=== PATIENT | male | born 1985 | race Caucasian/White ===

== ENCOUNTER 2020-10-26 18:18 | Emergency (ER) | payer OTHER, SELFPAY ==
[2020-10-26 20:37] VITALS: BP 134/78; PULSE 77; RESP 16; TEMP 37.1; O2SAT 98; BMI 35.2
--- NOTE | 2020-10-26 22:56 | ED_ITS ---
HPI - Skin/Abscess/Foreign Bdy General Chief complaint: Skin/Abscess/Foreign Body Stated complaint: finger infection Time Seen by Provider: 10/26/20 22:56 Source: patient Mode of arrival: ambulatory Limitations: no limitations History of Present Illness HPI narrative: Patient is a 35-year-old male no significant past medical history who has a sliver of wood stuck in his left thumb. He states it happened 2 weeks ago when he went to a hospital in [place] to try to have them remove it but they injected lidocaine in the area became distorted and they could not find it. So they put him on antibiotics and sent him home. He states he took a 2 weeks of antibiotics but this sliver has not come out yet. He states it is painful and still infected and he would like it removed. He does not remember when his last tetanus shot was, he states they did not give him a tetanus shot at the hospital in [place]. Related Data Previous Rx's Medication Instructions Recorded cephalexin 750 mg capsule (Keflex) 750 mg PO Q12H #20 cap 10/26/20 doxycycline hyclate 100 mg tablet 100 mg PO BID #14 tab 10/26/20 Allergies Allergy/AdvReac Type Severity Reaction Status Date / Time bee pollen [BEE STINGS] Allergy Unknown ANAPHYLAXIS Unverified 10/27/19 16:01 Review of Systems Review of Systems: Yes all other systems are reviewed and are negative [facility] Past Medical History Medical History No known health problems No known health problems Social History Social History Advance Directives: No Advance Directives Information Provided: No Physical Exam Vital Signs: Vital Signs: Last Vital Signs Temp 98.7 F 10/26/20 20:37 Pulse 77 10/26/20 20:37 Resp 16 10/26/20 20:37 BP 134/78 10/26/20 20:37 Pulse Ox 98 10/26/20 20:37 Body Mass Index 35.2 Const: General: cooperative, healthy appearing, comfortable, no acute distress and well developed Orientation/consciousness: patient oriented x3 Limitations: no limitations HENMT: Head: Yes normal to inspection Eyes: General: appearance normal, both eyes and all related structures Neck: Neck: Yes normal visual inspection and Yes full ROM Resp: Effort & Inspection: normal respiratory effort and able to speak in complete sentences Neuro: General: patient oriented x3 Extrem: Other: Left side/tip of thumb is erythematous, nonhealing wound with purulence coming from the wound, can see a small speck of black which is likely the sliver. NVI, full ROM of fingers, no streaking. Course Course Course Narrative: Soak finger in saline and Betadine, using an 11 blade was able to slice surface of the skin with a 2mm slice/pinpoint puncture and remove 1.5cm sliver of green wood. Will give patent tetanus shot an another round of Keflex and doxycycline. Discharge Plan Discharge Clinical Impression: Foreign body hand-infection Qualifiers: Encounter type: initial encounter Laterality: left Qualified Code(s): S60.552A - Superficial foreign body of left hand, initial encounter Patient Disposition: Home, Self-Care Additional Instructions: As discussed, we have given you a tetanus shot today, please keep the area clean and dry. I will send two prescriptions for antibiotics to her pharmacy, please take both in full. If your infection gets worse, please return to the emergency department. Prescriptions: New doxycycline hyclate 100 mg tablet 100 mg PO BID Qty: 14 RF: 0 cephalexin [Keflex] 750 mg capsule 750 mg PO Q12H Qty: 20 RF: 0
[2020-10-26] MEDS: Diphth,Pertus(ACell),Tet Adult 0.5 ML SYRINGE IM (23:24)
== END 2020-10-26 23:38 | disposition home or self-care (01) ==
PROVIDERS: Emergency Provider Internal Medicine; PCP Family Medicine
DX: S60.552A Superficial foreign body of left hand, initial encounter (principal); M79.642 Pain in left hand; W45.8XXA Other foreign body or object entering through skin, initial encounter; Y93.9 Activity, unspecified; Y92.9 Unspecified place or not applicable; Y99.9 Unspecified external cause status; Z79.899 Other long term (current) drug therapy
CPT/HCPCS: 10120; 90471; 90715; 99284

== ENCOUNTER 2022-08-12 19:00 | Emergency (ER) | payer OTHER, SELFPAY ==
[2022-08-12 19:05] VITALS: BP 185/105; PULSE 46; RESP 16; TEMP 36.4; O2SAT 100; BMI 32.4
--- NOTE | 2022-08-12 19:09 | ED.ABDPAIN ---
HPI - Abdominal Pain General Chief Complaint: General Medical Stated Complaint: RLQ and Flank Pain History of Present Illness HPI narrative: Patient is a 36-year-old male presented with having sudden onset of right flank pain. The pain is extreme. It goes from the right flank to the right lower quadrant. It is 10/10. It has been ongoing for approximately 5 hours. History of kidney stones similar pain in the past. No cough no congestion or respiratory symptoms. No diaphoresis. Patient from home. Related Data Previous Rx's Medication Instructions Recorded cephalexin 750 mg capsule (Keflex) 750 mg PO Q12H #20 caps 10/26/20 doxycycline hyclate 100 mg tablet 100 mg PO BID #14 tabs 10/26/20 ibuprofen 400 mg tablet 400 mg PO Q6H PRN pain #20 tabs 08/12/22 ondansetron 4 mg disintegrating 4 mg PO TID PRN nausea and 08/12/22 tablet vomiting 5 days #10 tabs oxycodone 5 mg tablet 5 mg PO Q8H PRN pain #7 tabs 08/12/22 tamsulosin 0.4 mg capsule (Flomax) 0.4 mg PO DAILY #7 caps 08/12/22 Allergies Allergy/AdvReac Type Severity Reaction Status Date / Time bee pollen [BEE STINGS] Allergy Unknown ANAPHYLAXIS Unverified 10/27/19 16:01 Review of Systems Review of Systems Positive right flank pain Yes all other systems are reviewed and are negative [facility] Past Medical History Attestation statement: The following information was validated with the patient. Medical History No known health problems No known health problems Social History Social History Alcohol intake: current Alcohol intake frequency: holidays/special occasions only Smoked in Last 30 Days: Yes Use of substances other than those prescribed or required for medical reasons: No Advance Directives: No Advance Directives Information Provided: No Physical Exam ED Vital Signs: Vital Signs - 24 hr 08/12/22 19:05 08/12/22 19:29 08/12/22 20:21 Temperature 97.5 F 98.0 F Pulse Rate 46 L 44 L 57 Respiratory Rate 16 16 18 Blood Pressure 185/105 H 148/74 H 126/60 Pulse Oximetry 100 100 99 Oxygen Delivery Method Room Air Room Air Room Air BMI result Body Mass Index 32.4 Appearance: Alert. Oriented X3. No acute distress. Eyes: Pupils equal, round and reactive to light. ENT: Pharynx normal. Neck: Normal inspection. Neck supple. No lymph nodes noted. No crepitus CVS: Normal heart rate and rhythm. Pulses normal. Normal S1 and S2 Respiratory: No respiratory distress. Breath sounds normal. No Wheezing. No rales Abdomen: Soft and nontender. No rigidity. No distention. good BS x4 Skin: Skin warm and dry. Normal skin color. Normal skin turgor. Extremities: No lower extremity edema. Neurovascular intact to all extremities. No Lacerations. No Rash Neuro: Oriented X 3. No motor deficit. No sensory deficit. Moving all extermities. No slurred speech Medical Decision Making Medical Decision Making MDM Narrative: Patient had flank pain very similar to previous bouts of kidney stones. It was sharp it was very sudden abrupt in onset it is in the right flank area. Patient denies any fever or chills. No systemic complaints. CT of the abdomen pelvis positive for a 2 mm x 4 mm kidney stone in the right ureter. Given pain medication. Seems the pain is under control. Patient's creatinine is normal. Is well-appearing. If urine is not infected will discharge patient home close follow-up on an outpatient basis. He has no fever chills here in the emergency department. Did not report any fever chills. In stable condition. Differential Diagnosis Differential Diagnoses: The differential diagnosis associated with the presentation includes Appendicitis, obstruction, abscess, kidney stone Admission/Observation Consideration of admission/observation: Escalation of care including admission/observation considered Pain is controlled normal kidney function no need to admit no fever Lab Data [facility] Lab Attestation statement: I reviewed the patient's lab results. 08/12/22 19:24 08/12/22 19:24 Labs: Lab Results 08/12/22 08/12/22 08/12/22 Range/Units 19:24 19:24 20:43 WBC 10.1 (4.8-10.8) X10*3/uL RBC 4.91 (4.60-5.80) X10*6/uL Hgb 14.8 (14.0-18.0) g/dl Hct 43.4 (42.0-52.0) % MCV 88.4 (80.0-98.0) fL MCH 30.1 (27.0-33.0) pg MCHC 34.1 (31.0-36.0) g/dl RDW 12.6 (11.0-16.0) % Plt Count 192 (160-400) X10*3/uL MPV 9.6 (9.4-12.4) fL Immature Gran % (Auto) 0.3 (0.0-0.4) % Neut % (Auto) 85.9 H (45-73) % Lymph % (Auto) 8.8 L (20-40) % [place] % (Auto) 4.6 (2-11) % Eos % (Auto) 0.1 (0-4) % Baso % (Auto) 0.3 (0-2) % Lymph # (Auto) 0.9 L (1.2-4.9) X10*3/uL [place] # (Auto) 0.5 (0.1-1.2) X10*3/uL Eos # (Auto) 0.0 (0.0-0.4) X10*3/uL Baso # (Auto) 0.0 (0.0-0.2) X10*3/uL Abs Immat Gran (auto) 0.03 (0.00-0.03) X10*3/uL Absolute Neuts (auto) 8.6 H (2.0-8.3) x10*3/uL Absolute Nucleated RBC 0.000 (0.0-0.012) X10*3/uL Nucleated RBC % (auto) 0.0 (0.0-0.2) /100WBC Sodium 140 (135-145) mmol/L Potassium 3.9 (3.3-5.1) mmol/L Chloride 110 H (96-108) mmol/L Carbon Dioxide 20 L (22-29) mmol/L Anion Gap 14 (12-20) BUN 19 H (9-16) mg/dL Creatinine 1.10 (0.5-1.4) mg/dL Estim Creat Clear Calc 111.3 Estimated GFR > 60 Random Glucose 128 H (60-115) mg/dL Calcium 9.4 (8.4-10.2) mg/dL Total Bilirubin 0.6 (0.0-1.0) mg/dL Direct Bilirubin 0.2 (0.0-0.5) mg/dL AST 19 (5-37) U/L ALT 14 (0-40) U/L Alkaline Phosphatase 47 (39-117) U/L Total Protein 6.7 (6.5-8.0) g/dL Albumin 4.2 (3.5-5.0) g/dL Lipase 7 L (8-78) U/L Urine Opiates Screen POSITIVE H (Not Detect) Urine Fentanyl Screen Not Detected (Not Detect) Ur Barbiturates Screen Not Detected (Not Detect) Ur Phencyclidine Scrn Not Detected (Not Detect) Ur Amphetamines Screen Not Detected (Not Detect) U Benzodiazepines Scrn Not Detected (Not Detect) Urine Cocaine Screen Not Detected (Not Detect) U Marijuana (THC) Screen Not Detected (Not Detect) Independent Interpretation I performed an independent interpretation of an: CT Scan Interpretation: No gross obstruction possible kidney stone noted Radiology Impression Discussion of test interpretation with radiology: I have reviewed the radiologist's reading. Chronic Conditions Kidney stones Medications Administered Discontinued Medications Generic Name Dose Route Start Last Admin Trade Name Freq PRN Reason Stop Dose Admin Hydromorphone HCl 0.5 mg 08/12/22 19:04 08/12/22 19:17 Hydromorphone Hcl 0.5 Mg/0.5 Ml Syringe IVPUSH 08/12/22 19:05 0.5 mg ONCE ONE Administration Protocol Sodium Chloride 1,000 mls @ 999 mls/hr 08/12/22 19:15 08/12/22 20:19 Ns IV 08/12/22 20:15 Infused .Q1H1M ANIKA Infusion Ketorolac Tromethamine 30 mg 08/12/22 19:04 08/12/22 19:17 Ketorolac Tromethamine 30 Mg/Ml Vial IVPUSH 08/12/22 19:05 30 mg ONCE ONE Administration Ondansetron HCl 4 mg 08/12/22 19:04 08/12/22 19:17 Ondansetron Hcl 4 Mg/2 Ml Vial IVPUSH 08/12/22 19:05 4 mg ONCE ONE Administration Discharge Plan Discharge Clinical Impression: Renal colic Patient Disposition: Home, Self-Care Instructions: Renal Colic (ED) Prescriptions: New tamsulosin [Flomax] 0.4 mg capsule 0.4 mg PO DAILY Qty: 7 0RF ibuprofen 400 mg tablet 400 mg PO Q6H PRN (Reason: pain) Qty: 20 0RF ondansetron 4 mg tablet,disintegrating 4 mg PO TID PRN (Reason: nausea and vomiting) 5 Days Qty: 10 0RF oxycodone 5 mg tablet 5 mg PO Q8H PRN (Reason: pain) Qty: 7 0RF Rx Instructions: Partial Fill upon patient request. No Action doxycycline hyclate 100 mg tablet 100 mg PO BID Qty: 14 0RF cephalexin [Keflex] 750 mg capsule 750 mg PO Q12H Qty: 20 0RF Referrals: Stephen Roth MD [Physician] - 08/14/22
[2022-08-12 19:29] VITALS: BP 148/74; PULSE 44; RESP 16; O2SAT 100
--- NOTE | 2022-08-12 19:35 | PC.NURSE ---
pt assessed, c/o severe RLQ since 1pm. medicated for pain and nausea, tolerated well
[2022-08-12 19:56] LABS: Alanine Aminotransferase 14 U/L (0-40); Albumin Level 4.2 g/dL (3.5-5.0); Alkaline Phosphatase 47 U/L (39-117); Anion Gap 14 (12-20); Aspartate Amino Transferase 19 U/L (5-37); Bilirubin Direct 0.2 mg/dL (0.0-0.5); Bilirubin Total 0.6 mg/dL (0.0-1.0); Blood Urea Nitrogen 19 mg/dL (9-16); Calcium 9.4 mg/dL (8.4-10.2); Carbon Dioxide 20 mmol/L (22-29); Chloride 110 mmol/L (96-108); Creatinine Clr Calc Pharmacy 111.3; Estimated Glomerular Filt Rate > 60; Glucose Random 128 mg/dL (60-115); Lipase 7 U/L (8-78); Potassium 3.9 mmol/L (3.3-5.1); Sodium 140 mmol/L (135-145); Total Protein 6.7 g/dL (6.5-8.0)
[2022-08-12 20:21] VITALS: BP 126/60; PULSE 57; RESP 18; TEMP 36.7; O2SAT 99
--- NOTE | 2022-08-12 20:22 | MHC.EDTECH ---
Tech assume care at [address] scan vitals taken pt is resting call reece is in reach.
[2022-08-12 21:19] VITALS: BP 129/64; PULSE 60; RESP 16; O2SAT 99
--- NOTE | 2022-08-12 21:21 | PC.NURSE ---
pt rassessed, reported pain increasing medicated with 2nd dose of Dilaudid ivp
--- NOTE | 2022-08-12 21:40 | ED.GENADULT ---
HPI - General Adult General Chief complaint: General Medical Stated complaint: RLQ and Flank Pain Related Data Previous Rx's Medication Instructions Recorded cephalexin 750 mg capsule (Keflex) 750 mg PO Q12H #20 caps 10/26/20 doxycycline hyclate 100 mg tablet 100 mg PO BID #14 tabs 10/26/20 ibuprofen 400 mg tablet 400 mg PO Q6H PRN pain #20 tabs 08/12/22 ondansetron 4 mg disintegrating 4 mg PO TID PRN nausea and 08/12/22 tablet vomiting 5 days #10 tabs oxycodone 5 mg tablet 5 mg PO Q8H PRN pain #7 tabs 08/12/22 tamsulosin 0.4 mg capsule (Flomax) 0.4 mg PO DAILY #7 caps 08/12/22 Allergies Allergy/AdvReac Type Severity Reaction Status Date / Time bee pollen [BEE STINGS] Allergy Unknown ANAPHYLAXIS Unverified 10/27/19 16:01 [facility] Past Medical History Medical History No known health problems No known health problems Social History Social History Alcohol intake: current Alcohol intake frequency: holidays/special occasions only Smoked in Last 30 Days: Yes Use of substances other than those prescribed or required for medical reasons: No Advance Directives: No Advance Directives Information Provided: No Physical Exam ED Vital Signs: Vital Signs - 24 hr 08/12/22 19:05 08/12/22 19:29 08/12/22 20:21 Temperature 97.5 F 98.0 F Pulse Rate 46 L 44 L 57 Respiratory Rate 16 16 18 Blood Pressure 185/105 H 148/74 H 126/60 Pulse Oximetry 100 100 99 Oxygen Delivery Method Room Air Room Air Room Air 08/12/22 21:19 Temperature Pulse Rate 60 Respiratory Rate 16 Blood Pressure 129/64 Pulse Oximetry 99 Oxygen Delivery Method Room Air BMI result Body Mass Index 32.4 Medications Administered Discontinued Medications Generic Name Dose Route Start Last Admin Trade Name Freq PRN Reason Stop Dose Admin Hydromorphone HCl 0.5 mg 08/12/22 19:04 08/12/22 19:17 Hydromorphone Hcl 0.5 Mg/0.5 Ml Syringe IVPUSH 08/12/22 19:05 0.5 mg ONCE ONE Administration Protocol Hydromorphone HCl 0.5 mg 08/12/22 21:13 08/12/22 21:18 Hydromorphone Hcl 0.5 Mg/0.5 Ml Syringe IVPUSH 08/12/22 21:14 0.5 mg ONCE ONE Administration Protocol Sodium Chloride 1,000 mls @ 999 mls/hr 08/12/22 19:15 08/12/22 20:19 Ns IV 08/12/22 20:15 Infused .Q1H1M ANIKA Infusion Ketorolac Tromethamine 30 mg 08/12/22 19:04 08/12/22 19:17 Ketorolac Tromethamine 30 Mg/Ml Vial IVPUSH 08/12/22 19:05 30 mg ONCE ONE Administration Ondansetron HCl 4 mg 08/12/22 19:08/12/22 19:17 Ondansetron Hcl 4 Mg/2 Ml Vial IVPUSH 08/12/22 19:05 4 mg ONCE ONE Administration Medical Decision Making Lab Data 08/12/22 19:24 08/12/22 19:24 Labs: Lab Results 08/12/22 08/12/22 08/12/22 Range/Units 19:24 19:24 20:43 WBC 10.1 (4.8-10.8) X10*3/uL RBC 4.91 (4.60-5.80) X10*6/uL Hgb 14.8 (14.0-18.0) g/dl Hct 43.4 (42.0-52.0) % MCV 88.4 (80.0-98.0) fL MCH 30.1 (27.0-33.0) pg MCHC 34.1 (31.0-36.0) g/dl RDW 12.6 (11.0-16.0) % Plt Count 192 (160-400) X10*3/uL MPV 9.6 (9.4-12.4) fL Immature Gran % (Auto) 0.3 (0.0-0.4) % Neut % (Auto) 85.9 H (45-73) % Lymph % (Auto) 8.8 L (20-40) % [place] % (Auto) 4.6 (2-11) % Eos % (Auto) 0.1 (0-4) % Baso % (Auto) 0.3 (0-2) % Lymph # (Auto) 0.9 L (1.2-4.9) X10*3/uL [place] # (Auto) 0.5 (0.1-1.2) X10*3/uL Eos # (Auto) 0.0 (0.0-0.4) X10*3/uL Baso # (Auto) 0.0 (0.0-0.2) X10*3/uL Abs Immat Gran (auto) 0.03 (0.00-0.03) X10*3/uL Absolute Neuts (auto) 8.6 H (2.0-8.3) x10*3/uL Absolute Nucleated RBC 0.000 (0.0-0.012) X10*3/uL Nucleated RBC % (auto) 0.0 (0.0-0.2) /100WBC Sodium 140 (135-145) mmol/L Potassium 3.9 (3.3-5.1) mmol/L Chloride 110 H (96-108) mmol/L Carbon Dioxide 20 L (22-29) mmol/L Anion Gap 14 (12-20) BUN 19 H (9-16) mg/dL Creatinine 1.10 (0.5-1.4) mg/dL Estim Creat Clear Calc 111.3 Estimated GFR > 60 Random Glucose 128 H (60-115) mg/dL Calcium 9.4 (8.4-10.2) mg/dL Total Bilirubin 0.6 (0.0-1.0) mg/dL Direct Bilirubin 0.2 (0.0-0.5) mg/dL AST 19 (5-37) U/L ALT 14 (0-40) U/L Alkaline Phosphatase 47 (39-117) U/L Total Protein 6.7 (6.5-8.0) g/dL Albumin 4.2 (3.5-5.0) g/dL Lipase 7 L (8-78) U/L Urine Color Yellow Urine Appearance Clear Urine pH 5.5 (5.0-9.0) Ur Specific [place] 1.020 (1.005-1.025) Urine Protein 30 (1+) H (Neg-Trace) mg/dL Urine Glucose (UA) Negative (Negative) mg/dL Urine Ketones Trace (Negative) mg/dL Urine Blood Large (3+) H (Negative) Urine Nitrite Negative (Negative) Ur Leukocyte Esterase Trace H (Negative) Urine RBC >20 H (0-2) /HPF Urine WBC 0-5 (0-5) /HPF Ur Squamous Epith Cells 0-2 (0-2) /HPF Urine Bacteria None Seen (None Seen) Hyaline Casts 0-2 (0-2) /LPF Urine Opiates Screen (Not Detect) Urine Fentanyl Screen (Not Detect) Ur Barbiturates Screen (Not Detect) Ur Phencyclidine Scrn (Not Detect) Ur Amphetamines Screen (Not Detect) U Benzodiazepines Scrn (Not Detect) Urine Cocaine Screen (Not Detect) U Marijuana (THC) Screen (Not Detect) 08/12/22 Range/Units 20:43 WBC (4.8-10.8) X10*3/uL RBC (4.60-5.80) X10*6/uL Hgb (14.0-18.0) g/dl Hct (42.0-52.0) % MCV (80.0-98.0) fL MCH (27.0-33.0) pg MCHC (31.0-36.0) g/dl RDW (11.0-16.0) % Plt Count (160-400) X10*3/uL MPV (9.4-12.4) fL Immature Gran % (Auto) (0.0-0.4) % Neut % (Auto) (45-73) % Lymph % (Auto) (20-40) % [place] % (Auto) (2-11) % Eos % (Auto) (0-4) % Baso % (Auto) (0-2) % Lymph # (Auto) (1.2-4.9) X10*3/uL [place] # (Auto) (0.1-1.2) X10*3/uL Eos # (Auto) (0.0-0.4) X10*3/uL Baso # (Auto) (0.0-0.2) X10*3/uL Abs Immat Gran (auto) (0.00-0.03) X10*3/uL Absolute Neuts (auto) (2.0-8.3) x10*3/uL Absolute Nucleated RBC (0.0-0.012) X10*3/uL Nucleated RBC % (auto) (0.0-0.2) /100WBC Sodium (135-145) mmol/L Potassium (3.3-5.1) mmol/L Chloride (96-108) mmol/L Carbon Dioxide (22-29) mmol/L Anion Gap (12-20) BUN (9-16) mg/dL Creatinine (0.5-1.4) mg/dL Estim Creat Clear Calc Estimated GFR Random Glucose (60-115) mg/dL Calcium (8.4-10.2) mg/dL Total Bilirubin (0.0-1.0) mg/dL Direct Bilirubin (0.0-0.5) mg/dL AST (5-37) U/L ALT (0-40) U/L Alkaline Phosphatase (39-117) U/L Total Protein (6.5-8.0) g/dL Albumin (3.5-5.0) g/dL Lipase (8-78) U/L Urine Color Urine Appearance Urine pH (5.0-9.0) Ur Specific [place] (1.005-1.025) Urine Protein (Neg-Trace) mg/dL Urine Glucose (UA) (Negative) mg/dL Urine Ketones (Negative) mg/dL Urine Blood (Negative) Urine Nitrite (Negative) Ur Leukocyte Esterase (Negative) Urine RBC (0-2) /HPF Urine WBC (0-5) /HPF Ur Squamous Epith Cells (0-2) /HPF Urine Bacteria (None Seen) Hyaline Casts (0-2) /LPF Urine Opiates Screen POSITIVE H (Not Detect) Urine Fentanyl Screen Not Detected (Not Detect) Ur Barbiturates Screen Not Detected (Not Detect) Ur Phencyclidine Scrn Not Detected (Not Detect) Ur Amphetamines Screen Not Detected (Not Detect) U Benzodiazepines Scrn Not Detected (Not Detect) Urine Cocaine Screen Not Detected (Not Detect) U Marijuana (THC) Screen Not Detected (Not Detect) Discharge Plan Discharge Clinical Impression: Renal colic Patient Disposition: Home, Self-Care Instructions: Renal Colic (ED) Prescriptions: New tamsulosin [Flomax] 0.4 mg capsule 0.4 mg PO DAILY Qty: 7 0RF ibuprofen 400 mg tablet 400 mg PO Q6H PRN (Reason: pain) Qty: 20 0RF ondansetron 4 mg tablet,disintegrating 4 mg PO TID PRN (Reason: nausea and vomiting) 5 Days Qty: 10 0RF oxycodone 5 mg tablet 5 mg PO Q8H PRN (Reason: pain) Qty: 7 0RF Rx Instructions: Partial Fill upon patient request. No Action doxycycline hyclate 100 mg tablet 100 mg PO BID Qty: 14 0RF cephalexin [Keflex] 750 mg capsule 750 mg PO Q12H Qty: 20 0RF Referrals: Stephen Roth MD [Physician] - 08/14/22
== END 2022-08-12 22:07 | disposition home or self-care (01) ==
PROVIDERS: Emergency Provider Emergency Medicine Emergency Medical Services
DX: N23 Unspecified renal colic (principal); Z87.442 Personal history of urinary calculi
CPT/HCPCS: 36415; 74176; 80048; 80076; 80307; 81001; 83690; 85025; 96361; 96374; 96375; 96376; 99284; 99285; J1170; J1885; J2405

== ENCOUNTER 2022-08-21 23:41 | Emergency (ER) | payer OTHER, SELFPAY ==
--- NOTE | ~2022-08-21 | CT_ITS ---
EXAMINATION: CT ABDOMEN AND PELVIS WITHOUT CONTRAST CLINICAL INFORMATION: Left flank pain, history of renal colic COMPARISON: [phone] TECHNIQUE: Multidetector volumetric imaging was performed from the superior aspect of the liver through the pubic symphysis. Sagittal and coronal reformatted images were obtained on the technologist's workstation. This CT examination was performed using dose optimization techniques as appropriate, variously including the following: *Automated exposure control *Adjustment of mA and/or kV according to patient size (this includes techniques or standardized protocols for targeted exams where dose is matched to indication/reason for exam; i.e. extremities or head) *Use of iterative reconstruction technique DLP: 677 mGy-cm FINDINGS: LUNG BASES: The visualized lung bases are unremarkable. LIVER, GALLBLADDER, AND BILIARY TREE: The liver is normal in size, shape, and attenuation. No focal hepatic lesion or biliary ductal dilatation is present. Gallbladder appears relatively contracted. PANCREAS: Unremarkable. SPLEEN: Tiny calcified granuloma noted. ADRENAL GLANDS: Unremarkable. KIDNEYS AND URETERS: There is a 6 mm calculus in the proximal left ureter with mild hydronephrosis. No significant right hydronephrosis. There are several scattered bilateral renal calculi measuring up to 5 mm. BLADDER: Unremarkable. GASTROINTESTINAL TRACT: No evidence of bowel obstruction or significant wall thickening. The appendix is unremarkable. No free fluid or free air is seen. ABDOMINAL WALL: No significant hernia is appreciated. LYMPH NODES: Normal. VASCULAR: Unremarkable. PELVIC VISCERA: Unremarkable. OSSEOUS STRUCTURES: Unremarkable. CT/CT abdomen pelvis wo IV con IMPRESSION: 1. Proximal left ureteral calculus measuring 6 mm with mild hydronephrosis. 2. Several scattered bilateral renal calculi.
[2022-08-21 23:45] VITALS: BP 176/87; PULSE 66; O2SAT 100
[2022-08-22 00:01] VITALS: BP 134/93; PULSE 58; RESP 12; TEMP 36.8; O2SAT 99; BMI 28.7
[2022-08-22 00:40] LABS: Appearance Urine Turbid; Color Urine BROWN; Glucose Urine UA Negative (Negative); Leukocyte Esterase Urine Negative (Negative); Nitrite Urine Negative (Negative); Specific Gravity - Urine 1.025 (1.005-1.025); UMIC TRIGGER UACC YES; Urine Blood Large (3+) (Negative); Urine Ketones Trace mg/dL (Negative); Urine Protein 30 (1+) mg/dL (Neg-Trace)
[2022-08-22 00:49] LABS: Bacteria Urine None Seen (None Seen); Hyaline Casts Urine 0-2 /LPF (0-2); RBC Urine >20 /HPF (0-2); Squamous Epithelial Cell Urine 0-2 /HPF (0-2); UACC Culture Trigger YES
[2022-08-22] MEDS: Ondansetron ODT 4 MG TAB.RAPDIS TRANSLINGU (02:16)
[2022-08-22] MEDS: Ketorolac Tromethamine 30 MG/ML VIAL 15 MG IVPUSH (02:16)
[2022-08-22] MEDS: 0.9 % Sodium Chloride 1,000 ML 999 ML IV (02:17)
--- NOTE | 2022-08-22 02:45 | ED.ABDPAIN ---
HPI - Abdominal Pain General Chief Complaint: Abdominal Pain Stated Complaint: Hematuria Time Seen by Provider: 08/22/22 00:18 Source: patient Mode of arrival: EMS History of Present Illness HPI narrative: Is a 36-year-old male with history of renal colic, arrives via ambulance for onset of acute sided left flank pain at approximately 21:00 this evening associated with some nausea but denies any vomiting, fever, chills and denies any dysuria. Patient states he has recently had and passed to stone and has never had to have lithotripsy. The time of my interview patient is feeling much improved. Related Data Previous Rx's Medication Instructions Recorded cephalexin 750 mg capsule (Keflex) 750 mg PO Q12H #20 caps 10/26/20 doxycycline hyclate 100 mg tablet 100 mg PO BID #14 tabs 10/26/20 ibuprofen 400 mg tablet 400 mg PO Q6H PRN pain #20 tabs 08/12/22 ondansetron 4 mg disintegrating 4 mg PO TID PRN nausea and 08/12/22 tablet vomiting 5 days #10 tabs oxycodone 5 mg tablet 5 mg PO Q8H PRN pain #7 tabs 08/12/22 tamsulosin 0.4 mg capsule (Flomax) 0.4 mg PO DAILY #7 caps 08/12/22 ketorolac 10 mg tablet 10 mg PO Q6H PRN pain 5 days #20 08/22/22 tabs prednisone 20 mg tablet 20 mg PO DAILY #3 tabs 08/22/22 Allergies Allergy/AdvReac Type Severity Reaction Status Date / Time bee pollen [BEE STINGS] Allergy Unknown ANAPHYLAXIS Unverified 10/27/19 16:01 Review of Systems Review of Systems Pertinent positives and negatives as stated in HPI PMFSH Past Medical History Source: nursing notes reviewed Medical History No known health problems No known health problems Social History Social History Alcohol intake: current Alcohol intake frequency: holidays/special occasions only Advance Directives: No Advance Directives Information Provided: No Physical Exam ED Vital Signs: Vital Signs - 24 hr 08/22/22 00:01 Temperature 98.2 F Pulse Rate 58 Respiratory Rate 12 Blood Pressure 134/93 H Pulse Oximetry 99 Oxygen Delivery Method Room Air BMI result Body Mass Index 28.7 VITAL SIGNS: Reviewed. GENERAL: Well developed, well nourished, in no acute distress. HEAD: Normocephalic/atraumatic EYES: PERRLA, EOMI EARS: Ext canals without abnormality LUNGS: Normal breath sounds. No adventitious sounds or accessory muscle use. SpO2<99> CARDIOVASCULAR: Regular rate and rhythm without noted murmurs ABDOMEN: Soft, non-tender, non-distended with bowel sounds. MUSCULOSKELETAL: No tenderness, deformities, or effusions noted on gross inspection. EXTREMITIES: No cyanosis, clubbing or edema. SKIN: Inspection of the skin reveals no rashes NEUROLOGIC: Alert and oriented x 4. Strength and sensation to light touch were grossly intact x 4. Medical Decision Making Medical Decision Making [facility] Narrative: 36-year-old male with history renal colic and now suspect the same although there is a possibility it is just a UTI and doubt pyelonephritis. Patient is afebrile and otherwise comfortable the time of my examination. Reviewed all investigations and urine is positive for hematuria but negative for evidence of infection, patient was given 1 L of fluids, Zofran, Toradol and is currently at a 1/10 for pain. I identify an approximate 3-4 mm stone in the left mid ureter. Patient is stable for discharge to home and states that he has plenty of Zofran. Differential Diagnosis Differential Diagnoses: The differential diagnosis associated with the presentation includes Please see the discussion above Lab Data [facility] Lab Attestation statement: I reviewed the patient's lab results. Please see the discussion above Labs: Lab Results 08/22/22 Range/Units 00:20 Urine Color BROWN Urine Appearance Turbid Urine pH 6.0 (5.0-9.0) Ur Specific [place] 1.025 (1.005-1.025) Urine Protein 30 (1+) H (Neg-Trace) mg/dL Urine Glucose (UA) Negative (Negative) mg/dL Urine Ketones Trace (Negative) mg/dL Urine Blood Large (3+) H (Negative) Urine Nitrite Negative (Negative) Ur Leukocyte Esterase Negative (Negative) Urine RBC >20 H (0-2) /HPF Urine WBC 6-10 H (0-5) /HPF Ur Squamous Epith Cells 0-2 (0-2) /HPF Urine Bacteria None Seen (None Seen) Hyaline Casts 0-2 (0-2) /LPF Radiology Impression Radiologist Impression: There is stone in the left ureter, otherwise my interpretation is in agreement with radiology's impression. Medications Administered Generic Name Dose Route Start Last Admin Trade Name Freq PRN Reason Stop Dose Admin Sodium Chloride 1,000 mls @ 999 mls/hr 08/22/22 02:15 08/22/22 02:17 Ns IV 08/22/22 03:15 999 mls/hr .Q1H1M ANIKA Administration Discontinued Medications Generic Name Dose Route Start Last Admin Trade Name Freq PRN Reason Stop Dose Admin Ketorolac Tromethamine 15 mg 08/22/22 02:08 08/22/22 02:16 Ketorolac Tromethamine 30 Mg/Ml Vial IVPUSH 08/22/22 02:09 15 mg ONCE ONE Administration Ondansetron HCl 4 mg 08/22/22 02:08 08/22/22 02:16 Ondansetron Odt 4 Mg Tab.Rapdis TRANSLINGU 08/22/22 02:09 4 mg ONCE ONE Administration Discharge Plan Discharge Clinical Impression: Ureterolithiasis, Renal colic Patient Disposition: Home, Self-Care Instructions: Renal Colic (ED), Low Oxalate Diet (ED), Ureteral Stones (ED) Additional Instructions: 1. you have been given medication to help control your pain. 2. Increased amount of water that you drink, use the Flomax each night before bed. 3. Please follow-up with Urology on Thursday morning. Return to the ER for any worsening symptoms Prescriptions: New ketorolac 10 mg tablet 10 mg PO Q6H PRN (Reason: pain) 5 Days Qty: 20 0RF Rx Instructions: Patient received Toradol in the emergency room prednisone 20 mg tablet 20 mg PO DAILY Qty: 3 0RF No Action doxycycline hyclate 100 mg tablet 100 mg PO BID Qty: 14 0RF cephalexin [Keflex] 750 mg capsule 750 mg PO Q12H Qty: 20 0RF tamsulosin [Flomax] 0.4 mg capsule 0.4 mg PO DAILY Qty: 7 0RF ibuprofen 400 mg tablet 400 mg PO Q6H PRN (Reason: pain) Qty: 20 0RF ondansetron 4 mg tablet,disintegrating 4 mg PO TID PRN (Reason: nausea and vomiting) 5 Days Qty: 10 0RF oxycodone 5 mg tablet 5 mg PO Q8H PRN (Reason: pain) Qty: 7 0RF Rx Instructions: Partial Fill upon patient request. Referrals: Mitra Sena MD [Physician] - Alfonso Ziegler MD [Primary Care Provider] -
[2022-08-22 03:43] VITALS: BP 133/88; PULSE 66; RESP 16; TEMP 36.7; O2SAT 100
[2022-08-22] MEDS: Ketorolac Tromethamine 15 MG/ML VIAL IM (03:46)
== END 2022-08-22 03:58 | disposition home or self-care (01) ==
PROVIDERS: Emergency Provider Student in an Organized Health Care Education/Training Program; PCP Family Medicine
DX: N20.1 Calculus of ureter (principal); N23 Unspecified renal colic; R11.0 Nausea; R31.9 Hematuria, unspecified
CPT/HCPCS: 74176; 81001; 87086; 96361; 96372; 96374; 99284; J1885

== ENCOUNTER 2022-08-24 18:50 | Inpatient (IN) | payer OTHER, SELFPAY ==
--- NOTE | ~2022-08-24 | FL_ITS ---
EXAMINATION: XR FLUOROSCOPY WITH IMAGES CLINICAL INFORMATION: Left-sided stone COMPARISON: Previous CT of the abdomen and pelvis the 23 TECHNIQUE: Fluoroscopy Supervised By: Dr. Stephen Roth. Fluoroscopy Time: 9.9 seconds. Cumulative Dose: 3.8 mGy. DAP: Gycm2. Images: 1. FINDINGS: Single image demonstrates a wire in the left distal ureter. There may be a left distal ureteral stone projecting over the left lower sacrum. FL/FL guidance in OR IMPRESSION: Fluoroscopy guidance for left retrograde exam.
--- NOTE | ~2022-08-24 | CT_ITS ---
EXAMINATION: CT ABDOMEN AND PELVIS WITHOUT CONTRAST CLINICAL INFORMATION: left flank pain hx of kidney stones. COMPARISON: 08/22/2022. TECHNIQUE: Multidetector volumetric imaging was performed from the superior aspect of the liver through the pubic symphysis without contrast per renal stone protocol. Sagittal and coronal reformatted images were obtained on the technologist workstation. This CT examination was performed using dose optimization techniques as appropriate, variously including the following: *Automated exposure control *Adjustment of mA and/or kV according to patient size (this includes techniques or standardized protocols for targeted exams where dose is matched to indication/reason for exam; i.e. extremities or head) *Use of iterative reconstruction technique DLP: 561 mGy-cm. FINDINGS: LUNG BASES: The visualized lung bases are unremarkable. LIVER, GALLBLADDER, BILIARY TREE: The non-contrast liver is normal in size, shape, and attenuation. No focal hepatic lesion or biliary ductal dilatation is present. The gallbladder is unremarkable with no evidence of radiopaque gallstones, gallbladder wall thickening, or obvious pericholecystic inflammatory changes. PANCREAS: Unremarkable. SPLEEN: Few tiny punctate calcific granulomas within the spleen incidentally noted. ADRENAL GLANDS: Unremarkable. KIDNEYS AND URETERS: There is left-sided hydronephrosis and hydroureter with mild perinephric and periureteric stranding. The left ureter is dilated throughout its course up to a 6 mm calcification in the mid left ureter at the level of L4/L5. Multiple tiny punctate nonobstructing intrarenal calculi are seen bilaterally as well. BLADDER: Decompressed and unremarkable GASTROINTESTINAL TRACT: Scattered colonic diverticulosis but no colonic wall thickening or pericolonic inflammatory change to suggest diverticulitis. Visualized small bowel unremarkable ABDOMINAL WALL: Tiny umbilical fat-containing hernia LYMPHOVASCULAR STRUCTURES: No lymphadenopathy. The aorta is unremarkable.. PELVIC VISCERA: Unremarkable. OSSEUS STRUCTURES: Unremarkable. CT/CT abdomen pelvis wo IV con IMPRESSION: Left-sided hydronephrosis and hydroureter extending up to a 6 mm calcification in the mid left ureter at the level of L4/L5. Additional tiny punctate nonobstructing intrarenal calculi seen bilaterally.
[2022-08-24 18:56] VITALS: BP 146/100; PULSE 102; O2SAT 98
[2022-08-24 18:59] VITALS: BP 120/75; PULSE 84; RESP 18; O2SAT 96; BMI 30.1
[2022-08-24 19:01] VITALS: PULSE 86
[2022-08-24] MEDS: 0.9 % Sodium Chloride 1,000 ML 999 ML IVCONT ×3 (19:33→21:25)
[2022-08-24 19:37] LABS: MANUAL DIFF FLAG NO
[2022-08-24] MEDS: ondansetron HCL 4 MG/2 ML VIAL IVPUSH (19:41)
[2022-08-24] MEDS: HYDROmorphone HCl 0.5 MG/0.5 ML SYRINGE IVPUSH (19:41)
[2022-08-24 19:42] LABS: Basophils Percent Auto 0.3 % (0-2); Eosinophils Absolute Auto 0.1 X10*3/uL (0.0-0.4); Eosinophils Percent Auto 0.9 % (0-4); Hemoglobin 13.7 g/dl (14.0-18.0); Imm Gran Abs Auto 0.03 X10*3/uL (0.00-0.03); Imm Gran Pct Auto 0.3 % (0.0-0.4); Lymphocytes Percent Auto 10.9 % (20-40); Mean Corpuscular HGB Conc 34.3 g/dl (31.0-36.0); Mean Corpuscular Hemoglobin 30.3 pg (27.0-33.0); Mean Corpuscular Volume 88.5 fL (80.0-98.0); Mean Platelet Volume 9.1 fL (9.4-12.4); Monocytes Absolute Auto 0.8 X10*3/uL (0.1-1.2); Monocytes Percent Auto 8.9 % (2-11); Neutrophils Absolute Auto 7.4 x10*3/uL (2.0-8.3); Neutrophils Percent Auto 78.7 % (45-73); Platelet Count 181 X10*3/uL (160-400); Red Blood Count 4.52 X10*6/uL (4.60-5.80); Red Cell Distribution Width 12.3 % (11.0-16.0); White Blood Count 9.3 X10*3/uL (4.8-10.8)
--- NOTE | 2022-08-24 19:45 | PC.NURSE ---
pt aox4, reporting severe pain left sided flank pain r/o kidney stones. medicated per apr. will ctm
[2022-08-24 19:58] LABS: Alanine Aminotransferase 14 U/L (0-40); Albumin Level 3.8 g/dL (3.5-5.0); Alkaline Phosphatase 54 U/L (39-117); Anion Gap 12 (12-20); Aspartate Amino Transferase 17 U/L (5-37); Bilirubin Total 0.7 mg/dL (0.0-1.0); Blood Urea Nitrogen 24 mg/dL (9-16); Calcium 9.6 mg/dL (8.4-10.2); Carbon Dioxide 22 mmol/L (22-29); Chloride 111 mmol/L (96-108); Creatinine Clr Calc Pharmacy 71.6; Estimated Glomerular Filt Rate 47; Glucose Random 108 mg/dL (60-115); Lipase 8 U/L (8-78); Magnesium 2.1 mg/dL (1.6-2.6); Potassium 3.9 mmol/L (3.3-5.1); Sodium 141 mmol/L (135-145); Total Protein 6.5 g/dL (6.5-8.0)
[2022-08-24 20:33] VITALS: BP 121/80; PULSE 92; RESP 18; TEMP 37.1; O2SAT 97
[2022-08-24 20:51] LABS: Appearance Urine Clear; Color Urine Yellow; Glucose Urine UA Negative (Negative); Leukocyte Esterase Urine Negative (Negative); Nitrite Urine Negative (Negative); UMIC TRIGGER UACC YES; Urine Blood Trace (Negative); Urine Ketones Negative (Negative); Urine Protein Negative (Neg-Trace)
--- NOTE | 2022-08-24 20:59 | PC.NURSE ---
pt reports feeling much better, pain down to a 3, next liter of fluids infusing
--- NOTE | 2022-08-24 21:21 | ED.MALEGU ---
HPI - Male Genitourinary General Chief complaint: Urogenital-Male Stated complaint: L FLANK PAIN ABD PAIN Time Seen by Provider: 08/24/22 21:01 Source: patient Mode of arrival: EMS Limitations: no limitations History of Present Illness HPI Narrative: Patient comes to the emergency room complaining of left-sided flank pain. Patient is known to have kidney stones. This is the 3rd visit in 1 month for the same complaint. Patient states that since his early 20s he has been passing kidney stones. He has never required surgery. However, this time the pain is consistent in lasting longer than usual. Patient complained of nausea, no vomiting. Related Data Previous Rx's Medication Instructions Recorded cephalexin 750 mg capsule (Keflex) 750 mg PO Q12H #20 caps 10/26/20 doxycycline hyclate 100 mg tablet 100 mg PO BID #14 tabs 10/26/20 ibuprofen 400 mg tablet 400 mg PO Q6H PRN pain #20 tabs 08/12/22 ondansetron 4 mg disintegrating 4 mg PO TID PRN nausea and 08/12/22 tablet vomiting 5 days #10 tabs oxycodone 5 mg tablet 5 mg PO Q8H PRN pain #7 tabs 08/12/22 tamsulosin 0.4 mg capsule (Flomax) 0.4 mg PO DAILY #7 caps 08/12/22 ketorolac 10 mg tablet 10 mg PO Q6H PRN pain 5 days #20 08/22/22 tabs prednisone 20 mg tablet 20 mg PO DAILY #3 tabs 08/22/22 Allergies Allergy/AdvReac Type Severity Reaction Status Date / Time bee pollen [BEE STINGS] Allergy Unknown ANAPHYLAXIS Verified 08/22/22 03:45 Review of Systems Review of Systems: Constitutional : No Weight loss, No Fever, No Chills, No Night Sweats, No Fatigue, No Malaise ENT/Mouth : No Hearing loss, No Ear Pain, No Nasal Congestion, No Sinus Pain, No Hoarseness, No sore throat, No Rhinorrhea, No Swallowing Difficulty Eyes: No Eye Pain, No Swelling, No Redness, No Foreign Body, No Discharge, No Vision Changes Cardiovascular : No Chest Pain, No SOB, No Dyspnea on Exertion, No Orthopnea, No Edema, No Palpitations Respiratory : No Cough, No Sputum, No Wheezing, No Smoke Exposure, No Dyspnea Gastrointestinal : No Nausea, No Vomiting, No Diarrhea, No Constipation, No abdominal Pain, No Hematochezia, No Melena Genitourinary : no irregular bleeding, No Dysuria, No Urinary Frequency, No Hematuria, No Urinary Incontinence, No Urgency, complaining of left-sided Flank Pain, No Urinary Flow Changes, No Hesitancy Musculoskeletal : No joint pain, No Myalgias, No Joint Swelling Skin : No Skin Lesions, No rash Neuro : No Weakness, No Numbness, No Paresthesias, No Loss of Consciousness, No Dizziness, No Headache Psych : No Anxiety/Panic, No Depression, No SI/HI/AH/VH, No Social Issues, Heme/Lymph: No Bruising, No Bleeding,No Lymphadenopathy Endocrine : No Polyuria, No Polydipsia, No Temperature Intolerance [facility] Past Medical History Medical History (Updated 08/24/22 @ 22:40 by Sylvie Palmer MD) Kidney stones Social History Social History Alcohol intake: current Alcohol intake frequency: holidays/special occasions only Smoked in Last 30 Days: Yes Use of substances other than those prescribed or required for medical reasons: No Advance Directives: No Advance Directives Information Provided: No Physical Exam Vital Signs: Vital Signs: Last Vital Signs Temp 98.8 F 08/24/22 20:33 Pulse 92 08/24/22 20:33 Resp 18 08/24/22 20:33 BP 121/80 08/24/22 20:33 Pulse Ox 97 08/24/22 20:33 O2 Del Method Room Air 08/24/22 20:33 BMI result Body Mass Index 30.1 Const: Other: Appearance: Alert. Oriented X3. No acute distress. Eyes: Pupils equal, round and reactive to light. ENT: Pharynx normal. Neck: Normal inspection. Neck supple. No lymph nodes noted. No crepitus CVS: Normal heart rate and rhythm. Pulses normal. Normal S1 and S2 Respiratory: No respiratory distress. Breath sounds normal. No Wheezing. No rales Abdomen: Soft and nontender. No rigidity. No distention. Skin: Skin warm and dry. Normal skin color. Normal skin turgor. Extremities: No lower extremity edema. No Lacerations. No Rash Neuro: Oriented X 3. No motor deficit. No sensory deficit. Moving all extremities. No slurred speech. CN 2 through 12 grossly intact Psych: calm, cooperative, normal affect Course Course Course Narrative: - Medications Administered Discontinued Medications Generic Name Dose Route Start Last Admin Trade Name Charly PRN Reason Stop Dose Admin Hydromorphone HCl 0.5 mg 08/24/22 19:37 08/24/22 19:41 Hydromorphone Hcl 0.5 Mg/0.5 Ml Syringe IVPUSH 08/24/22 19:38 0.5 mg ONCE ONE Administration Protocol Sodium Chloride 1,000 mls @ 999 mls/hr 08/24/22 19:15 08/24/22 20:30 Ns IVCONT 08/24/22 20:15 Infused .Q1H1M ANIKA Infusion Sodium Chloride 1,000 mls @ 999 mls/hr 08/24/22 20:45 08/24/22 22:14 Ns IVCONT 08/24/22 21:45 Infused .Q1H1M ANIKA Infusion Sodium Chloride 1,000 mls @ 999 mls/hr 08/24/22 21:10 08/24/22 22:14 Ns IVCONT 08/24/22 22:10 Infused .Q1H1M ONE Infusion Ondansetron HCl 4 mg 08/24/22 19:06 08/24/22 19:41 Ondansetron Hcl 4 Mg/2 Ml Vial IVPUSH 08/24/22 19:07 4 mg ONCE ONE Administration Medical Decision Making Medical Decision Making [facility] Narrative: -this is patient's 3rd visit in 1 month for renal colic. Admission is being considered. -my interpretation of labs, patient's creatinine is 1.65. Patient receiving IV fluids. Likely cause is the stone obstruction in the left ureter causing hydronephrosis and hydroureter -patient received Dilaudid. The pain initially decreased. However, patient states that the pain is starting to return. At home, patient has been tried ketorolac that helped, but the pain is recurrent -my interpretation of CT scan of abdomen pelvis: Hydronephrosis present on the left, there is approximately a 5 mm stone in the ureter on the left -I discussed the patient with Dr. Roth, patient admitted, to be NPO after midnight -patient agreeable with plan Differential Diagnosis Differential Diagnoses: The differential diagnosis associated with the presentation includes (Renal colic, ureterolithiasis, UTI, pyelonephritis) Admission/Observation Consideration of admission/observation: Escalation of care including admission/observation considered Consult Healthcare Provider Management of the patient was discussed with: Project Engineer Lab Data MDM Lab Attestation statement: I reviewed the patient's lab results. 08/24/22 19:32 08/24/22 19:32 Labs: Lab Results 08/24/22 08/24/22 08/24/22 Range/Units 19:32 19:32 19:32 WBC 9.3 (4.8-10.8) X10*3/uL RBC 4.52 L (4.60-5.80) X10*6/uL Hgb 13.7 L (14.0-18.0) g/dl Hct 40.0 L (42.0-52.0) % MCV 88.5 (80.0-98.0) fL MCH 30.3 (27.0-33.0) pg MCHC 34.3 (31.0-36.0) g/dl RDW 12.3 (11.0-16.0) % Plt Count 181 (160-400) X10*3/uL MPV 9.1 L (9.4-12.4) fL Immature Gran % (Auto) 0.3 (0.0-0.4) % Neut % (Auto) 78.7 H (45-73) % Lymph % (Auto) 10.9 L (20-40) % [facility] % (Auto) 8.9 (2-11) % Eos % (Auto) 0.9 (0-4) % Baso % (Auto) 0.3 (0-2) % Lymph # (Auto) 1.0 L (1.2-4.9) X10*3/uL [facility] # (Auto) 0.8 (0.1-1.2) X10*3/uL Eos # (Auto) 0.1 (0.0-0.4) X10*3/uL Baso # (Auto) 0.0 (0.0-0.2) X10*3/uL Abs Immat Gran (auto) 0.03 (0.00-0.03) X10*3/uL Absolute Neuts (auto) 7.4 (2.0-8.3) x10*3/uL Absolute Nucleated RBC 0.000 (0.0-0.012) X10*3/uL Nucleated RBC % (auto) 0.0 (0.0-0.2) /100WBC PT 12.0 (10.0-13.1) SEC INR 1.0 (0.9-1.1) Sodium 141 (135-145) mmol/L Potassium 3.9 (3.3-5.1) mmol/L Chloride 111 H (96-108) mmol/L Carbon Dioxide 22 (22-29) mmol/L Anion Gap 12 (12-20) BUN 24 H (9-16) mg/dL Creatinine 1.65 H (0.5-1.4) mg/dL Estim Creat Clear Calc 71.6 Estimated GFR 47 Random Glucose 108 (60-115) mg/dL Calcium 9.6 (8.4-10.2) mg/dL Magnesium 2.1 (1.6-2.6) mg/dL Total Bilirubin 0.7 (0.0-1.0) mg/dL AST 17 (5-37) U/L ALT 14 (0-40) U/L Alkaline Phosphatase 54 (39-117) U/L Total Protein 6.5 (6.5-8.0) g/dL Albumin 3.8 (3.5-5.0) g/dL Lipase 8 (8-78) U/L Urine Color Urine Appearance Urine pH (5.0-9.0) Ur Specific [place] (1.005-1.025) Urine Protein (Neg-Trace) mg/dL Urine Glucose (UA) (Negative) mg/dL Urine Ketones (Negative) mg/dL Urine Blood (Negative) Urine Nitrite (Negative) Ur Leukocyte Esterase (Negative) Urine RBC (0-2) /HPF Urine WBC (0-5) /HPF Ur Squamous Epith Cells (0-2) /HPF Urine Bacteria (None Seen) Hyaline Casts (0-2) /LPF 08/24/22 Range/Units 20:44 WBC (4.8-10.8) X10*3/uL RBC (4.60-5.80) X10*6/uL Hgb (14.0-18.0) g/dl Hct (42.0-52.0) % MCV (80.0-98.0) fL MCH (27.0-33.0) pg MCHC (31.0-36.0) g/dl RDW (11.0-16.0) % Plt Count (160-400) X10*3/uL MPV (9.4-12.4) fL Immature Gran % (Auto) (0.0-0.4) % Neut % (Auto) (45-73) % Lymph % (Auto) (20-40) % [facility] % (Auto) (2-11) % Eos % (Auto) (0-4) % Baso % (Auto) (0-2) % Lymph # (Auto) (1.2-4.9) X10*3/uL [facility] # (Auto) (0.1-1.2) X10*3/uL Eos # (Auto) (0.0-0.4) X10*3/uL Baso # (Auto) (0.0-0.2) X10*3/uL Abs Immat Gran (auto) (0.00-0.03) X10*3/uL Absolute Neuts (auto) (2.0-8.3) x10*3/uL Absolute Nucleated RBC (0.0-0.012) X10*3/uL Nucleated RBC % (auto) (0.0-0.2) /100WBC PT (10.0-13.1) SEC INR (0.9-1.1) Sodium (135-145) mmol/L Potassium (3.3-5.1) mmol/L Chloride (96-108) mmol/L Carbon Dioxide (22-29) mmol/L Anion Gap (12-20) BUN (9-16) mg/dL Creatinine (0.5-1.4) mg/dL Estim Creat Clear Calc Estimated GFR Random Glucose (60-115) mg/dL Calcium (8.4-10.2) mg/dL Magnesium (1.6-2.6) mg/dL Total Bilirubin (0.0-1.0) mg/dL AST (5-37) U/L ALT (0-40) U/L Alkaline Phosphatase (39-117) U/L Total Protein (6.5-8.0) g/dL Albumin (3.5-5.0) g/dL Lipase (8-78) U/L Urine Color Yellow Urine Appearance Clear Urine pH 6.0 (5.0-9.0) Ur Specific [place] 1.010 (1.005-1.025) Urine Protein Negative (Neg-Trace) mg/dL Urine Glucose (UA) Negative (Negative) mg/dL Urine Ketones Negative (Negative) mg/dL Urine Blood Trace H (Negative) Urine Nitrite Negative (Negative) Ur Leukocyte Esterase Negative (Negative) Urine RBC 0-2 (0-2) /HPF Urine WBC 0-5 (0-5) /HPF Ur Squamous Epith Cells 0-2 (0-2) /HPF Urine Bacteria None Seen (None Seen) Hyaline Casts 0-2 (0-2) /LPF Independent Interpretation I performed an independent interpretation of an: CT Scan Radiology Impression Discussion of test interpretation with radiology: I have reviewed the radiologist's reading. Radiologist Impression: FINDINGS: LUNG BASES: The visualized lung bases are unremarkable. LIVER, GALLBLADDER, BILIARY TREE: The non-contrast liver is normal in size, shape, and attenuation. No focal hepatic lesion or biliary ductal dilatation is present.? The gallbladder is unremarkable with no evidence of radiopaque gallstones, gallbladder wall thickening, or obvious pericholecystic inflammatory changes. PANCREAS: Unremarkable. SPLEEN: Few tiny punctate calcific granulomas within the spleen incidentally noted. ADRENAL GLANDS: Unremarkable. KIDNEYS AND URETERS: There is left-sided hydronephrosis and hydroureter with mild perinephric and periureteric stranding. The left ureter is dilated throughout its course up to a 6 mm calcification in the mid left ureter at the level of L4/L5. Multiple tiny punctate nonobstructing intrarenal calculi are seen bilaterally as well. BLADDER: Decompressed and unremarkable GASTROINTESTINAL TRACT: Scattered colonic diverticulosis but no colonic wall thickening or pericolonic inflammatory change to suggest diverticulitis. Visualized small bowel unremarkable ABDOMINAL WALL: Tiny umbilical fat-containing hernia LYMPHOVASCULAR STRUCTURES: No lymphadenopathy.? The aorta is unremarkable.. PELVIC VISCERA: Unremarkable. OSSEUS STRUCTURES: Unremarkable. CT/CT abdomen pelvis wo IV con IMPRESSION: Left-sided hydronephrosis and hydroureter extending up to a 6 mm calcification in the mid left ureter at the level of L4/L5. Additional tiny punctate nonobstructing intrarenal calculi seen bilaterally. ? Critical Care Time Critical Care Time Critical Care Time: Yes Total Critical Care Time: 60 Attestation: I have personally provided critical care time. Time includes review of lab data, radiology results, discussion with consultants, and monitoring for potential decompensation. Intervention performed as documented. Discharge Plan Discharge Clinical Impression: Kidney stones, Acute kidney injury Patient Disposition: Admitted As Inpatient Prescriptions: No Action doxycycline hyclate 100 mg tablet 100 mg PO BID Qty: 14 0RF cephalexin [Keflex] 750 mg capsule 750 mg PO Q12H Qty: 20 0RF tamsulosin [Flomax] 0.4 mg capsule 0.4 mg PO DAILY Qty: 7 0RF ibuprofen 400 mg tablet 400 mg PO Q6H PRN (Reason: pain) Qty: 20 0RF ondansetron 4 mg tablet,disintegrating 4 mg PO TID PRN (Reason: nausea and vomiting) 5 Days Qty: 10 0RF oxycodone 5 mg tablet 5 mg PO Q8H PRN (Reason: pain) Qty: 7 0RF Rx Instructions: Partial Fill upon patient request. ketorolac 10 mg tablet 10 mg PO Q6H PRN (Reason: pain) 5 Days Qty: 20 0RF Rx Instructions: Patient received Toradol in the emergency room prednisone 20 mg tablet 20 mg PO DAILY Qty: 3 0RF
[2022-08-24 21:36] LABS: Bacteria Urine None Seen (None Seen); Hyaline Casts Urine 0-2 /LPF (0-2); RBC Urine 0-2 /HPF (0-2); Squamous Epithelial Cell Urine 0-2 /HPF (0-2); WBC Urine 0-5 /HPF (0-5)
--- NOTE | 2022-08-24 22:15 | PC.NURSE ---
iv fluids finished, pt will be NPO after midnight, got turkey sandwich and tea for now
--- NOTE | 2022-08-24 23:08 | P.HPGS_ITS ---
History of Present Illness History of Present Illness Date of Service: 08/24/22 Chief complaint: L FLANK PAIN ABD PAIN Narrative: Delmer Crook JR is a 36 year old male Reports 3rd visit to emergency room in past month for left-sided flank pain Known history of kidney stones Has not previously required intervention This has more pain to 8/10 and has not resolved Creatinine shows elevation to 1.6, calcium 9.6 Imaging - 6 mm mid left ureteric stone with proximal hydroureteronephrosis and punctate renal stones No significant prior medical history Given presentation recommended admission with intervention Cystoscopy, retrograde, ureteroscopy with laser lithotripsy and stent placement Review of Systems Constitutional: Constitutional: Reports as per HPI and Reports no additional constitutional complaints Cardiovascular: Cardiovascular: Reports as per HPI and Reports no additional cardiovascular complaints Respiratory: Respiratory: Reports as per HPI and Reports no additional respiratory complaints Gastrointestinal: Gastrointestinal: Reports as per HPI and Reports no additional gastrointestinal complaints Genitourinary: Genitourinary: Reports as per HPI Musculoskeletal: Musculoskeletal: Reports no additional musculoskeletal complaints and Reports as per HPI Neurologic: Reports system reviewed and no additional complaints, except as documented and Reports as per HPI COUNT INCLUDES [facility] Past Medical History Medical History (Updated 08/24/22 @ 22:40 by Sylvie Palmer MD) Kidney stones Social History Social History Alcohol intake: current Alcohol intake frequency: holidays/special occasions only Smoked in Last 30 Days: Yes Use of substances other than those prescribed or required for medical reasons: No Advance Directives: No Advance Directives Information Provided: No Meds Allergies Allergy/AdvReac Type Severity Reaction Status Date / Time bee pollen [BEE STINGS] Allergy Unknown ANAPHYLAXIS Verified 08/22/22 03:45 Physical Exam Vital Signs: Vital Signs: Last Vital Signs Temp 98.8 F 08/24/22 20:33 Pulse 92 08/24/22 20:33 Resp 18 08/24/22 20:33 BP 121/80 08/24/22 20:33 Pulse Ox 97 08/24/22 20:33 O2 Del Method Room Air 08/24/22 20:33 BMI result Body Mass Index 30.1 Const: General: cooperative, healthy appearing, comfortable and no acute distress Orientation/consciousness: patient oriented x3 HEENT: Face and sinus: Yes normal facial exam Mouth: moist mucous membranes Neck: Neck: Yes normal visual inspection, Yes full ROM and Yes trachea midline Chest: Chest palpation & inspection: normal inspection of the chest Resp: Effort & Inspection: normal respiratory effort, able to speak in complete sentences and no respiratory distress GI: Inspection: Yes normal to inspection Back/Spine/Pelvis: Cervical Spine: normal cervical lordosis Thoracic/Lumbar Spine: thoracic and lumbar spine normal to inspection Skin: General skin exam: no rashes or lesions noted Neuro: General: patient oriented x3, tone normal and moves all extremities Extrem: General: Yes normal to inspection and Yes capillary refill normal Results Results Labs: Short CBC 08/24/22 Range/Units 19:32 WBC 9.3 (4.8-10.8) X10*3/uL Hgb 13.7 L (14.0-18.0) g/dl Hct 40.0 L (42.0-52.0) % Plt Count 181 (160-400) X10*3/uL BMP 08/24/22 19:32 Sodium 141 Potassium 3.9 Chloride 111 H Carbon Dioxide 22 BUN 24 H Creatinine 1.65 H Calcium 9.6 Liver Function 08/24/22 Range/Units 19:32 Total Bilirubin 0.7 (0.0-1.0) mg/dL AST 17 (5-37) U/L ALT 14 (0-40) U/L Alkaline Phosphatase 54 (39-117) U/L Albumin 3.8 (3.5-5.0) g/dL Urine 08/24/22 Range/Units 20:44 Urine Color Yellow Urine Appearance Clear Urine pH 6.0 (5.0-9.0) Ur Specific [place] 1.010 (1.005-1.025) Urine Protein Negative (Neg-Trace) mg/dL Urine Glucose (UA) Negative (Negative) mg/dL Assessment and Plan (1) Acute kidney injury: Status: Acute (2) Kidney stones: Status: Acute Plan Admission with rehydration NPO Ureteroscopy with intervention Ureteroscopy We discussed the nature of the decision and reasonable alternatives for performing ureteroscopy. Options such as medical therapy were discussed. Interventions include chemical dissolution, ESWL, ureteroscopy with laser lithotripsy and stent placement, PCNL. The relative uncertainties and benefits related to each alternate procedure were adequately discussed. General surgical risks including, but not limited to - pain, bleeding, infection, myocardial infarction, pulmonary embolus, deep vein thrombosis and cerebrovascular accident which may result in further hospitalization were discussed. Full disclosure of the procedure as well as all major risks, benefits and complications were discussed including but not limited to damage to the urethra, bladder and kidney infection, damage to the ureter, stent migration or malposition, scarring to the renal pelvis, remnant stone fragments, subsequent stone passage with need for secondary procedures. The overall secondary procedure rate is approximately 10-15%. The overall clearance rate is approximately 90-95%. Success of the procedure in the short-term does not necessarily guarantee that long-term success will be maintained. Suitable follow up will need to be maintained. The patient showed understanding of discussion and wishes to proceed with - cystoscopy, retrograde, ureteroscopy, possible lithotripsy/stone basketing and stent on the left side Time Spent With Patient Time: Total time managing care of this patient today ____ minutes. Quality Stroke Does the patient have a stroke diagnosis?: No VTE Prior VTE?: No VTE Risk Level:: Surgical - low VTE Device Contraindication: Treatment Not Indicated VTE Drug Contraindication: Treatment Not Indicated Procedures Date of Service Date of Service: 08/24/22
[2022-08-25] VITALS (9 sets, daily range): BP systolic 103–138; BP diastolic 58–82; PULSE 73–95; RESP 12–18; TEMP 36.4–37.2; O2SAT 91–100
[2022-08-25] MEDS: 0.9 % Sodium Chloride 1,000 ML 150 ML IVCONT ×2 (00:02→06:04)
[2022-08-25] MEDS: 0.9 % Sodium Chloride Flush 3 ML SYRINGE IVFLUSH (00:02)
[2022-08-25] MEDS: oxyCODONE HCl Immed Release 5 MG TABLET PO ×3 (01:17→09:33)
[2022-08-25] MEDS: Ketorolac Tromethamine 15 MG/ML VIAL IVPUSH (01:22)
--- NOTE | 2022-08-25 04:22 | PC.NURSE ---
Pt requesting something more for pain. Pt informed that he cannot have his PRN at this time, states he can wait until it is within the timeframe.
--- NOTE | 2022-08-25 05:21 | PC.NURSE ---
Pt medicated per APR. Pt noted to be chewing the pill instead of swallowing whole. informed that pill should be swallowed whole going forward. shows no evidence of learning.
--- NOTE | 2022-08-25 08:57 | PHA.MEDREC ---
Pharmacy Consult ? Medication Reconciliation Pharmacy has completed the medication reconciliation. spoke with patient and confirmed his medications. He reports the ketorolac not working and did not want to keep taking it. He said he last took is about 24 hours ago.
[2022-08-25] MEDS: Acetaminophen 325 MG TABLET 975 MG PO (09:33)
--- NOTE | 2022-08-25 11:17 | MHC.SHP ---
Pre-Procedural Eval Section A Date of Service: 08/25/22 The patient is an INPATIENT: Yes Changes since office visit: No Cold of Flu in the past 2 weeks, No New Medical Problems, No Changes in Medication and No Patient answered all questions The History & Physical has been completed within 30 days and I have reviewed it.: Yes Section B Chief Complaint: Ureteric Stones Allergies: Allergies Allergy/AdvReac Type Severity Reaction Status Date / Time bee pollen [BEE STINGS] Allergy Unknown ANAPHYLAXIS Verified 08/22/22 03:45 Plan Diagnosis/Plan: Unchanged (Cystoscopy, left retrograde, left ureteroscopy with laser lithotripsy stent placement) I have reviewed the history and physical and performed a pertinent physical examination on my patient. No changes have occurred unless specified. Time Spent With Patient Time: Total time managing care of this patient today ____ minutes.
--- NOTE | 2022-08-25 11:41 | HO.ANESPROP2 ---
HPI - Anesthesia Eval Consult details Narrative: left kidney stone PMFSH Active Problems Active Problems: All Active Problems (Updated 08/25/22 @ 10:16 by Maira Hidalgo RN) Acute kidney injury (Acute) Kidney stones (Acute) Past Medical History Medical History (Updated 08/25/22 @ 10:16 by Maira Hidalgo RN) Asthma Cardiac arrest Kidney stones Family History Family history of problems with anesthesia: No Surgical History History of Problems with Anesthesia: No Social History Social History Alcohol intake: current Alcohol intake frequency: holidays/special occasions only Patient Tobacco Use Status: Tobacco use Unknown Smoked in Last 30 Days: Yes Use of substances other than those prescribed or required for medical reasons: No Are you DNR?: No Advance Directives: Yes Advance Directives on File: Yes Advance Directives Date on File: 08/25/22 Meds Allergies Allergy/AdvReac Type Severity Reaction Status Date / Time bee pollen [BEE STINGS] Allergy Unknown ANAPHYLAXIS Verified 08/22/22 03:45 Active Medications: Current Medications Acetaminophen (Acetaminophen 325 Mg Tablet) 975 mg PO TID [facility] Last Admin: 08/25/22 09:33 Dose: 975 mg Sodium Chloride (Ns) 1,000 mls @ 150 mls/hr IVCONT .Q6H40M [facility] Last Admin: 08/25/22 06:04 Dose: 150 mls/hr Levofloxacin (Levaquin) 500 mg in 100 mls @ 100 mls/hr IV PREOP ONE Stop: 08/25/22 12:16 Ketorolac Tromethamine (Ketorolac Tromethamine 15 Mg/Ml Vial) 15 mg IVPUSH Q6H PRN PRN Reason: Pain, Moderate(Pain Scale 4-6) Last Admin: 08/25/22 01:22 Dose: 15 mg Oxycodone HCl (Oxycodone Hcl Immed Release 5 Mg Tablet) 5 mg PO Q4H PRN PRN Reason: Breakthrough Pain Last Admin: 08/25/22 09:33 Dose: 5 mg Sodium Chloride (0.9 % Sodium Chloride Flush 3 Ml Syringe) 3 ml IVFLUSH QSHIFT [facility] Last Admin: 08/25/22 09:20 Dose: Not Given Home Medications Medication Instructions Recorded Confirmed Last Taken Type albuterol sulfate 90 mcg/actuation 2 puff inhalation Q6H PRN wheezing 08/25/22 08/25/22 Unknown History aerosol inhaler (Ventolin HFA) budesonide-formoterol HFA 80 2 puff inhalation BID PRN Allergy 08/25/22 08/25/22 Unknown History mcg-4.5 mcg/actuation aerosol Symptoms inhaler (Symbicort) clonidine HCl 0.2 mg tablet 0.2 mg PO BEDTIME 08/25/22 08/25/22 Unknown History dextroamphetamine-amphetamine ER 1 cap PO DAILY 08/25/22 08/25/22 Unknown History 20 mg 24hr capsule,extend release (Adderall XR) Exam Exam Date and Time: August 25, 2022 1141 Height,Weight and Vital Signs: Height 5 ft 10 in Weight 95.254 kg Last Vital Signs Temp 98.8 F 08/25/22 10:25 Pulse 78 08/25/22 10:25 Resp 16 08/25/22 10:25 BP 126/82 08/25/22 10:25 Pulse Ox 97 08/25/22 10:25 O2 Del Method Room Air 08/25/22 10:25 Pertinent Lab Results Pertinent Lab Results: Laboratory Tests 08/24/22 08/24/22 08/24/22 19:32 19:32 19:32 WBC 9.3 RBC 4.52 L Hgb 13.7 L Hct 40.0 L MCV 88.5 MCH 30.3 MCHC 34.3 RDW 12.3 Plt Count 181 MPV 9.1 L Immature Gran % (Auto) 0.3 Neut % (Auto) 78.7 H Lymph % (Auto) 10.9 L [place] % (Auto) 8.9 Eos % (Auto) 0.9 Baso % (Auto) 0.3 Lymph # (Auto) 1.0 L [place] # (Auto) 0.8 Eos # (Auto) 0.1 Baso # (Auto) 0.0 Abs Immat Gran (auto) 0.03 Absolute Neuts (auto) 7.4 Absolute Nucleated RBC 0.000 Nucleated RBC % (auto) 0.0 PT 12.0 INR 1.0 Sodium 141 Potassium 3.9 Chloride 111 H Carbon Dioxide 22 Anion Gap 12 BUN 24 H Creatinine 1.65 H Estim Creat Clear Calc 71.6 Estimated GFR 47 Random Glucose 108 Calcium 9.6 Magnesium 2.1 Total Bilirubin 0.7 AST 17 ALT 14 Alkaline Phosphatase 54 Total Protein 6.5 Albumin 3.8 Lipase 8 Urine Color Urine Appearance Urine pH Ur Specific [place] Urine Protein Urine Glucose (UA) Urine Ketones Urine Blood Urine Nitrite Ur Leukocyte Esterase Urine RBC Urine WBC Ur Squamous Epith Cells Urine Bacteria Hyaline Casts 08/24/22 20:44 WBC RBC Hgb Hct MCV MCH MCHC RDW Plt Count MPV Immature Gran % (Auto) Neut % (Auto) Lymph % (Auto) [place] % (Auto) Eos % (Auto) Baso % (Auto) Lymph # (Auto) [place] # (Auto) Eos # (Auto) Baso # (Auto) Abs Immat Gran (auto) Absolute Neuts (auto) Absolute Nucleated RBC Nucleated RBC % (auto) PT INR Sodium Potassium Chloride Carbon Dioxide Anion Gap BUN Creatinine Estim Creat Clear Calc Estimated GFR Random Glucose Calcium Magnesium Total Bilirubin AST ALT Alkaline Phosphatase Total Protein Albumin Lipase Urine Color Yellow Urine Appearance Clear Urine pH 6.0 Ur Specific [place] 1.010 Urine Protein Negative Urine Glucose (UA) Negative Urine Ketones Negative Urine Blood Trace H Urine Nitrite Negative Ur Leukocyte Esterase Negative Urine RBC 0-2 Urine WBC 0-5 Ur Squamous Epith Cells 0-2 Urine Bacteria None Seen Hyaline Casts 0-2 Airway Mallampati Class: II TM Dist: >3cm Neck ROM: Full Denture: Upper and Lower Loose/Missing/Broken Teeth: No Heart: rr Lungs: cta Assessment and Plan Assessment Anesthesia Assessment: Anesthesia Plan Discussed and Chart Reviewed Final Anesthetic Review Family History of Problems with Anesthesia: No History of Problems with Anesthesia: No NPO: Yes ASA Class: II Final Preanesthetic Review: No Changes in Pt Med Stat, Meds/Allgs Chart Reviewed and Consent Obtained/Reviewed Patient Risk: Low Procedure Risk: Low Anesthetic Plan Anesthetic Plan: GA Disposition: Standard PACU
--- NOTE | 2022-08-25 12:35 | W.PM.OPN ---
Operative Note Operative Note Date of Service: 08/25/22 Narrative: PreOperative Diagnosis: Left mid ureteric stone with hydronephrosis and acute renal insult Post Operative Diagnosis: Left mid ureteric stone with hydro in nephrosis in acute renal insult Procedure: - cystoscopy, left retrograde - left dilatation of ureteric orifice under fluoroscopy - left ureteroscopy, laser lithotripsy, stone basketing - left stent placement Surgeon: Dr Stephen Roth Anesthesia: General Indications for procedure: Left mid ureteric stone with hydroureteronephrosis. Creatinine 1.65 suggestive acute renal insult. Procedure: After informed consent was verified the patient was brought to the operating room and placed in a supine position. Anesthesia was administered per protocol. The patient was placed in a modified dorsal lithotomy position and prepped and draped in a sterile fashion. Safety pause time-out and side of surgery were confirmed. Images were available for review. Antibiotic administration confirmed. A 22 [place] cystoscope was inserted per urethra. The urethra was without aabnormality. The bladder was normal in its entirety. Both ureteric orifices were seen in normal position. The left ureteric orifice was cannulated and a retrograde examination was performed. Filling defect left mid ureter . A Sensor guidewire was placed up to the level of the renal pelvis under fluoroscopy. The rigid cystoscope was removed. A [place] dilator was placed over the Sensor guidewire and used to dilate the ureteric orifice under fluoroscopy. The dilator was removed. The semi rigid ureteral scope was placed alongside the Sensor guidewire. Stone was encountered in left mid ureter. Using a 365 micro holmium laser fiber the stone was broken into small pieces using a combination of hammer and dusting techiques. Stone fragments were removed from the ureter using a sure catch basket. Once the fragments were removed a decision was made to place a ureteric stent. Based on the height of the patient a 6 Fr x 28 cm stent was used. The string was removed from the stent prior to placement The rigid cystoscope was backloaded over the wire and advanced into the bladder. A 6 [place] by 28 cm double-J stent was placed into the renal pelvis and bladder under a combination of fluoroscopy and direct visualization. The bladder was emptied. The patient tolerated the procedure well and was extubated in the operating room. They were transferred in stable condition to the recovery area. Pathology: stones Drains: Double J stent as described above
--- NOTE | 2022-08-25 12:45 | MHC.CM.PN ---
Patient discharged from [facility] before being seen by case management.
[2022-08-25] MEDS: Phenazopyridine HCL 100 MG TABLET PO (12:54)
[2022-08-29 19:34] LABS: Stone Source KIDNEY STONE
--- NOTE | 2022-11-13 15:45 | PM.DS ---
DS: Providers Provider Date of Service: 08/25/22 Date of admission: 08/24/22 23:12 Primary care physician: Alfonso Ziegler MD DS: Diagnosis Discharge Diagnosis (1) Acute kidney injury: Status: Acute (2) Kidney stones: Status: Acute DS: Summary Hospital Course Hospital Course: Underwent renal stone procedure Status at Discharge Functional status at discharge: independent ambulation Overall status at discharge: patient is back to baseline Time Spent with Patient Time attestation: Total time managing care of this patient today ____ minutes. Discharge coordination time: Less than 30 minutes Quality: Safe Use of Opioids Does Pt have an Active Cancer Diagnosis on the Problem List?: No Quality: Stroke Does the patient have a stroke diagnosis?: No Physical Exam Vital Signs: Vital Signs: Last Vital Signs Temp 97.6 F 08/25/22 12:52 Pulse 86 08/25/22 12:52 Resp 16 08/25/22 12:52 BP 114/72 08/25/22 12:52 Pulse Ox 96 08/25/22 12:52 O2 Del Method Room Air 08/25/22 12:52 O2 Flow Rate 2 08/25/22 12:42 BMI result Body Mass Index 30.1 DS: Data Data Completed and Pending Completed studies during hospitalization [Text1]: Pending at discharge 08/25/22 12:23 Surgical [PTH] Routine Procedures Dilation of Left Ureter with Intraluminal Device, Via Natural or Artificial Opening Endoscopic (08/24/22) Extirpation of Matter from Left Ureter, Via Natural or Artificial Opening Endoscopic (08/24/22) Fluoroscopy of Left Kidney, Ureter and Bladder using Low Osmolar Contrast (08/24/22) Imaging CT scan - pelvis: Radiologist's impression: ITS Impressions Abdomen/Pelvis CT 08/24/22 19:40 IMPRESSION: Left-sided hydronephrosis and hydroureter extending up to a 6 mm calcification in the mid left ureter at the level of L4/L5. Additional tiny punctate nonobstructing intrarenal calculi seen bilaterally. Guidance Fluoroscopy 08/25/22 12:25 IMPRESSION: Fluoroscopy guidance for left retrograde exam. Discharge Plan Discharge Anticipated Discharge Date/Time: 08/25/22 12:31 Patient Disposition: Home, Self-Care Discharge Diagnosis: left ureteric stone with acute renal insult Referrals: Stephen Roth MD [Physician] - 1 Week Alfonso Ziegler MD [Primary Care Provider] - None Discharge Medications: New tramadol 50 mg tablet 50 mg PO Q6H PRN (Reason: pain (scale score 1-3)) Qty: 8 0RF tamsulosin 0.4 mg capsule 0.4 mg PO BEDTIME 14 Days Qty: 14 0RF phenazopyridine [Pyridium] 100 mg tablet 100 mg PO TID PRN (Reason: Spasm) 4 Days Qty: 12 0RF naproxen 500 mg tablet 500 mg PO BID PRN (Reason: pain) 7 Days Qty: 14 0RF Continued clonidine HCl 0.2 mg tablet 0.2 mg PO BEDTIME dextroamphetamine-amphetamine [Adderall XR] 20 mg capsule,extended release 24hr 1 cap PO DAILY albuterol sulfate [Ventolin HFA] 90 mcg/actuation HFA aerosol inhaler 2 puff inhalation Q6H PRN (Reason: wheezing) budesonide-formoterol [Symbicort] 80-4.5 mcg/actuation HFA aerosol inhaler 2 puff inhalation BID PRN (Reason: Allergy Symptoms) ondansetron 4 mg tablet,disintegrating 4 mg PO TID PRN (Reason: nausea and vomiting) 5 Days Qty: 10 0RF oxycodone 5 mg tablet 5 mg PO Q8H PRN (Reason: pain) Qty: 7 0RF Rx Instructions: Partial Fill upon patient request. ketorolac 10 mg tablet 10 mg PO Q6H PRN (Reason: pain) 5 Days Qty: 20 0RF Rx Instructions: Patient received Toradol in the emergency room Discharge Orders: Discharge Order (Routine); Ordered 08/25/22 Ordered By: Stephen Roth Diet: Advance to usual diet Activity on Discharge: As tolerated Stand Alone Forms: Patient Portal Discharge page Care Plan Goals: stone management Health Concerns: stone management Plan of Treatment: stone management Assessment: stone managment Discharge Date/Time: 08/25/22 15:30
== END 2022-08-25 15:30 | disposition home or self-care (01) | DRG 446 ==
LOC: HO.ED 22:40 → HO.EDOVER 23:15
PROVIDERS: Physician Assistant Medical; Admitting Provider Urology; Emergency Provider Emergency Medicine; PCP Family Medicine; Visit Provider Urology
PROC: 0TC78ZZ Extirpation of Matter from Left Ureter, Via Natural or Artificial Opening Endoscopic (ICD-10-PCS; principal; 2022-08-25 15:50)
DX: N13.2 Hydronephrosis with renal and ureteral calculous obstruction (principal); N17.9 Acute kidney failure, unspecified; Z87.442 Personal history of urinary calculi; Z79.899 Other long term (current) drug therapy
CPT/HCPCS: 36415; 74176; 80053; 81001; 81003; 82365; 83690; 83735; 85025; 85610; 88300; 99285; C1758; C1769; C2617; J1170; J1885; J1956; J2250; J2405; J3010; Q9967

== ENCOUNTER → 2022-08-24 19:31 | Outpatient (BNV) | payer OTHER, SELFPAY | PROVIDERS: Emergency Provider Emergency Medicine; PCP Family Medicine; Visit Provider Urology | DX: N17.9 Acute kidney failure, unspecified (principal); N20.0 Calculus of kidney | CPT/HCPCS: 52356; 99223; 99238 ==

== ENCOUNTER 2022-09-19 09:20 | Outpatient (AMB) | payer OTHER, SELFPAY ==
--- NOTE | 2022-09-19 04:46 | A.OFFVIS_ITS ---
Intake Intake Visit Reasons: stent removal Intake Note: Patient presents today for a CYSTOSCOPY/STENT REMOVAL Procedure: Meds: Pyridium, Tamsulosin & Naproxen Allergies to Antibiotic: No Known Allergies Blood Thinner: None Urinalysis test cleared for Cysto Disposible Uro-G Cystoscope Cannula: Lot: [id number] Exp: 06/30/2024 Broke Handler Required: No Accompanied by: Self / Same As Patient Allergies bee pollen [BEE STINGS] Allergy (Unknown, Verified 09/19/22 09:25) ANAPHYLAXIS HPI HPI Comments History of Present Illness Details 09/19/2022-- Delmer is a 36-year-old male who presents today to the office for stent removal. He is a status post left ureteroscopy, laser lithotripsy which was done by Dr. Roth on 08/25/2022. CAT scan of the abdomen without contrast done on 08/24/2022 showed 6mm mid left ureter stone and bilateral tiny punctuate renal stones. Plan: Stent was removed today in the office. Ordered 24-hour urine collection. Discussed to reduce sodium intake. Follow up in 10 weeks, 24-hour urine collection prior. [facility] Medical History (Updated 08/25/22 @ 10:16 by Maria Hidalgo RN) Asthma Cardiac arrest Kidney stones Surgical History (Updated 09/19/22 @ 09:26 by YANI Shafer) Hx of cystoscopy Family History (Updated 09/19/22 @ 09:26 by YANI Shafer) Father No problems noted. Mother No problems noted. Social History Alcohol intake: current Alcohol intake frequency: holidays/special occasions only Patient Tobacco Use Status: Tobacco use Unknown Advance Directives Date on File: 08/25/22 Review of Systems Const All systems reviewed & are unremarkable except as noted in HPI and below Reports no additional complaints Eyes Reports no additional complaints ENT Denies neck pain Card Denies leg edema Resp Denies cough GI Denies constipation Musc Reports no additional complaints and Denies neck pain Skin/Breast Denies rash and Denies unusual bruising Neuro Reports no additional complaints Psych Reports no additional complaints Endo Reports no additional complaints Stalin/Lymph Reports no additional complaints Aller/Immun Reports no additional complaints Office Procedures Cystoscopy Consent Discussed risk and benefit or proposed procedure with the patient. Information consent for procedure given to the patient. Discussed technical aspects, risks, benefits and alternatives in full. Addressed all of the patient's questions and concerns regarding the procedure. The patient demonstrated knowledge and understanding. They wish to proceed with this procedure. Preparation The patient was prepped in the usual manner. A dramatic coach was present and in the room. Genitalia was prepped with betadine solution in a sterile manner. Lidocaine Jelly 2% was placed into the urethra and 16Fr flexible Olympus cystoscope was inserted into the meatus after adequate lubrication. Time out per protocol performed. Bladder Inspection Cystoscopy findings: mild edema right ureteral orifice which is expected, distal end of ureteral stent visualized. The grasping forceps were used and the stent was removed without difficulty. [id number] with stent removal DISPOSABLE SCOPE URO-G FLEXIBLE SCOPE Procedure code (CPT) selection complete Office Meds lidocaine HCl Performing Provider: Mitra Sena MD Administered by: Jaky Clark RN on 09/19/22 09:37 Dose Route Admin Location Lot Number Expiration Date ND Manager Skilled 10 mL intra-urethral naproxen Performing Provider: Mitra Sena MD Administered by: Jaky Clark RN on 09/19/22 09:37 Dose Route Admin Location Lot Number Expiration Date ND Manager Skilled 500 mg PO ciprofloxacin HCl Performing Provider: Mitra Sena MD Administered by: Jaky Clark RN on 09/19/22 09:37 Dose Route Admin Location Lot Number Expiration Date NDC Manager Skilled 500 mg PO Results AMB Urinalysis, Automated UA Leukoctes 125 Brayden/uL Last Edit by YANI Shafer on 09/19/22 09:36 UA Nitrite Negative Last Edit by YANI Shafer on 09/19/22 09:36 UA Urobilinogen 0.2 mg/dL Last Edit by YANI Shafer on 09/19/22 09:3 6 UA Protein 300 mg/dL Last Edit by Gwendolyn Keys A on 09/19/22 09:36 UA pH 6.0 Last Edit by Gwendolyn Keys A on 09/19/22 09:36 UA Blood 200 Lukas/uL Last Edit by Gwendolyn Keys RMA on 09/19/22 09:36 UA Specific [place] 1.030 Last Edit by Gwendolyn Keys RMA on 09/19/22 09: 36 UA Ketone Negative Last Edit by Gwendolyn Kesy A on 09/19/22 09:36 UA Bilirubin 0 mg/dL Last Edit by Gwendolyn Keys A on 09/19/22 09:36 UA Glucose 0 mg/dL Last Edit by Gwendolyn Keys A on 09/19/22 09:36 Results Reviewed Results Reviewed: Laboratory Last Values Urine pH (Auto) 6.0 09/19/22 09:25 Specific [place] (Auto) 1.030 09/19/22 09:25 Urine Protein (Auto) 300 mg/dL 09/19/22 09:25 Glucose (UA)(Auto) 0 mg/dL 09/19/22 09:25 Urine Ketones (Auto) Negative 09/19/22 09:25 Urine Blood (Auto) 200 Lukas/uL 09/19/22 09:25 Urine Nitrite (Auto) Negative 09/19/22 09:25 Urine Bilirubin (Auto) 0 mg/dL 09/19/22 09:25 Urine Urobilinogen (Auto) 0.2 mg/dL 09/19/22 09:25 Leukocyte Esterase (Auto) 125 Brayden/uL 09/19/22 09:25 Date of Service: 08/24/22 EXAMINATION: CT ABDOMEN AND PELVIS WITHOUT CONTRAST CLINICAL INFORMATION: left flank pain hx of kidney stones. COMPARISON: 08/22/2022. FINDINGS: LUNG BASES: The visualized lung bases are unremarkable. LIVER, GALLBLADDER, BILIARY TREE: The non-contrast liver is normal in size, shape, and attenuation. No focal hepatic lesion or biliary ductal dilatation is present.? The gallbladder is unremarkable with no evidence of radiopaque gallstones, gallbladder wall thickening, or obvious pericholecystic inflammatory changes. PANCREAS: Unremarkable. SPLEEN: Few tiny punctate calcific granulomas within the spleen incidentally noted. ADRENAL GLANDS: Unremarkable. KIDNEYS AND URETERS: There is left-sided hydronephrosis and hydroureter with mild perinephric and periureteric stranding. The left ureter is dilated throughout its course up to a 6 mm calcification in the mid left ureter at the level of L4/L5. Multiple tiny punctate nonobstructing intrarenal calculi are seen bilaterally as well. BLADDER: Decompressed and unremarkable GASTROINTESTINAL TRACT: Scattered colonic diverticulosis but no colonic wall thickening or pericolonic inflammatory change to suggest diverticulitis. Visualized small bowel unremarkable ABDOMINAL WALL: Tiny umbilical fat-containing hernia LYMPHOVASCULAR STRUCTURES: No lymphadenopathy.? The aorta is unremarkable.. PELVIC VISCERA: Unremarkable. OSSEUS STRUCTURES: Unremarkable. IMPRESSION: Left-sided hydronephrosis and hydroureter extending up to a 6 mm calcification in the mid left ureter at the level of L4/L5. Additional tiny punctate nonobstructing intrarenal calculi seen bilaterally. Assessment & Plan Assessment & Plan (1) Kidney stones: Code(s): N20.0 - Calculus of kidney Plan Stent was removed today in the office. Ordered 24-hour urine collection. Discussed to reduce sodium intake. Follow up in 10 weeks, 24-hour urine collection prior. Orders: Orders AMB Cystoscopy Today N20.0 - Calculus of kidney AMB Urinalysis Automated Today Z13.9 - Encounter for screening, unspecified Patient Instructions: The patient had an opportunity to ask questions regarding treatment plan. All questions were answered. Imaging, Laboratory studies and physical exam results were discussed and reviewed in detail. No major barriers to understanding were identified. The patient expressed understanding and agreement with the above treatment plan.? ? ? The patient is aware they should contact our office by phone for worsening of their current condition or the appearance of new symptoms. Compliance is encouraged with any medications and followup testing that is ordered.? ? ? It is a privilege to be allowed the opportunity to participate in the urologic care of your patient. If you have any questions or concerns regarding treatment for the above conditions please do not hesitate to contact me. The office telephone contact is [phone].? ? ? This note is constructed in part using voice recognition software. While every effort has been made to ensure accuracy panel sewer errors may have been included.? ? ? Yours sincerely,? ? ? Mitra Sena MD? Coding Level of Care Code Procedure Only Diagnoses Kidney stones N20.0 CPT Codes Cystoscopy - CPT: 89795-[id number] with stent removal ([id number]) Cystoscopy - CPT: DISPOSABLE SCOPE URO-G FLEXIBLE SCOPE ([id number])
== END 2022-09-19 10:29 | disposition home or self-care (01) ==
PROVIDERS: PCP Family Medicine; Visit Provider Urology
DX: N20.0 Calculus of kidney (principal); Z96.0 Presence of urogenital implants
CPT/HCPCS: 52310

== ENCOUNTER → 2022-09-19 09:20 | Outpatient (BNVA) | payer OTHER, SELFPAY | PROVIDERS: PCP Family Medicine; Visit Provider Urology | DX: Z48.816 Encounter for surgical aftercare following surgery on the genitourinary system (principal) | CPT/HCPCS: 52310; C1747 ==